=== PATIENT | male | born 1970 ===

== ENCOUNTER 2024-11-01 08:22 | Outpatient (CLI) | payer OTHER, SELFPAY ==
--- NOTE | ~2024-11-01 | MR_ITS ---
MRI of the thoracic spine Clinical History: Back pain Technique: Axial T2-weighted and gradient images, and sagittal T1-weighted, T2-weighted, and STIR louise ges were acquired. Findings: There is no fracture or subluxation of the thoracic spine. Vertebral bodies maintain normal height and alignment. No suspicious bone marrow signal abnormality seen. Intervertebral discs are relatively well-preserved, with multilevel mild degenerative disc narrowing of the from T4 through T7. No significant disc bulge or herniation seen at any thoracic level. No spi nal canal stenosis or cord compression. Neural foramina are preserved throughout the thoracic spine. No abnormal signal seen in the spinal cord. Paravertebral soft tissues are unremarkable. Impression: Minimal degenerative change, as above. Reviewed, dictated and finalized at location M. Impression: Minimal degenerative change, as above.
--- NOTE | ~2024-11-01 | MR_ITS ---
MRI of the lumbar spine Clinical History: Back pain Technique: Axial T2-weighted images, and sagittal T1-weighted, T2-weighted, and T2 fat-sat images wer e acquired. Findings: There is no fracture or subluxation of the lumbar spine. Vertebral bodies maintain normal h eight and alignment. No bone marrow signal abnormality seen. At L1-L2, L2-L3, L3-L4, intervertebral discs maintain normal signal and position. No disc bulge or he rniation at these levels. There is minimal facet arthropathy. No spinal canal stenosis or neural fora earl narrowing at these levels. At L4-L5, there is mild disc bulge with moderate facet arthropathy. No spinal canal stenosis or neura l foraminal narrowing. At L5-S1, there is advanced degenerative disc narrowing. There is minimal disc bulge with mild facet arthropathy. No central canal stenosis. There is probable minimal left neural foraminal narrowing. Ri ght neural foramen preserved. Paravertebral soft tissues are unremarkable. Impression: Mild degenerative spondylosis at L5-S1, as above. Reviewed, dictated and finalized at location . Impression: Mild degenerative spondylosis at L5-S1, as above.
== END 2024-11-01 08:23 | disposition home or self-care (01) ==
DX: M47.894 Other spondylosis, thoracic region (principal); M47.897 Other spondylosis, lumbosacral region
CPT/HCPCS: 72146; 72148